=== PATIENT | male | born 1995 | race Caucasian/White ===

== ENCOUNTER 2020-03-03 08:10 | Day surgery (SDC) | payer OTHER ==
[~2020-03-03] VITALS: Ht 165.1 cm; Wt 81.4 kg
[2020-03-03] VITALS (7 sets, daily range): BP systolic 126–141; BP diastolic 57–90
[2020-03-03] MEDS ORDERED: NS 1,000 ML IV ONE (09:00)
[2020-03-03] MEDS ORDERED: ONDANSETRON 4MG/2ML VIAL IV ONE (09:00)
[2020-03-03] MEDS ORDERED: KETOROLAC 30 MG/ML 1ML VIAL IV ONE (09:00)
[2020-03-03 09:08] LABS: BASO % 0.2 % (0.0-1.0); EOS % 0.1 % (0.0-3.0); HEMATOCRIT 44.7 % (42.0-52.0); HEMOGLOBIN 15.3 g/dl (13.5-17.5); LYMPH # 1.3 10^3/uL (1.5-5.0); LYMPH % 6.8 % (24.0-44.0); MEAN CORPUSCULAR HEMOGLOBIN 29.8 pg (27.0-33.0); MEAN CORPUSCULAR HGB CONC 34.2 g/dl (32.0-36.5); MEAN CORPUSCULAR VOLUME 87.1 fl (80.0-96.0); MONO # 1.3 10^3/uL (0.0-0.8); MONO % 6.3 % (0.0-5.0); NEUTROPHILS % 86.1 % (36.0-66.0); PLATELET COUNT, AUTOMATED 305 10^3/uL (150-450); RED BLOOD COUNT 5.13 10^6/uL (4.30-6.10); WHITE BLOOD COUNT 19.8 10^3/uL (4.0-10.0)
[2020-03-03] MEDS ORDERED: ISOVUE-370 76% 100ML VIAL As Ordered ONE (09:19)
[2020-03-03 09:46] LABS: ALBUMIN 4.4 GM/DL (3.2-5.2); BILIRUBIN,DIRECT 0.1 MG/DL (0.0-0.2); BILIRUBIN,TOTAL 0.5 MG/DL (0.2-1.0); TOTAL PROTEIN 7.5 GM/DL (6.4-8.2)
--- NOTE | 2020-03-03 09:52 | REP ---
INDICATION: diffuse abd pain, n/v COMPARISON: None. TECHNIQUE: CT Scan of the abdomen and pelvis was performed with intravenous administration of 100 cc of Isovue 370, without oral contrast. FINDINGS: Lung bases: There is no evidence of acute infiltrate. There is a small hiatal hernia. Liver: There is diffuse fatty infiltration of the liver. Gallbladder: Unremarkable. Spleen: Normal. Adrenals: Normal. Pancreas: Normal. Kidneys: Normal. Small and large bowel: Unremarkable. Free fluid: There is trace free fluid in the pelvis. Abdominal aorta: No aneurysm or dissection. Adenopathy: None. Appendix: The appendix is distended with fluid, with surrounding streaky inflammatory change in the periappendiceal fat. The findings are consistent with appendicitis.. Osseous structures: Unremarkable. Pelvis: No mass. IMPRESSION: The appendix is distended with fluid, with surrounding streaky inflammatory change in the periappendiceal fat. The findings are consistent with appendicitis.. There is trace free fluid in the pelvis. There is no free air. <Electronically signed by Jabari Wyatt > 03/03/20 0901
[2020-03-03] MEDS ORDERED: PIPERACILLIN/TAZOBACTAM SOD 4.5 GM in D5W MINI-BAG PLUS 50 ML IV ONE (11:15)
[2020-03-03] MEDS ORDERED: LR 1,000 ML IV SCH ×2 (13:08→17:45)
[2020-03-03] MEDS ORDERED: ONDANSETRON 4MG/2ML VIAL IV PRN ×2 (13:15→17:45)
[2020-03-03] MEDS ORDERED: propofoL 200 MG/20 ML VIAL As Ordered ONE (15:04)
[2020-03-03] MEDS ORDERED: ROCURONIUM BROMIDE 50 MG/5 ML VIAL As Ordered ONE (15:04)
[2020-03-03] MEDS ORDERED: LIDOCAINE 2% 100MG/5ML SDV (FOR ANES.) As Ordered ONE (15:04)
[2020-03-03] MEDS ORDERED: fentaNYL 250 MCG/5 ML INJECTION (J3010) As Ordered ONE (15:04)
[2020-03-03] MEDS ORDERED: MIDAZOLAM INJ 2MG/2ML VIAL (J2250 PER 1MG) As Ordered ONE (15:05)
[2020-03-03] MEDS ORDERED: BUPIVACAINE HCL 0.25% 30ML VIAL As Ordered ONE (15:06)
[2020-03-03] MEDS ORDERED: LIDOCAINE 1% SDV 30ML VIAL As Ordered ONE (15:06)
[2020-03-03] MEDS ORDERED: KETOROLAC 60MG 2ML VIAL As Ordered ONE (15:35)
[2020-03-03] MEDS ORDERED: dexameTHASONE 4 MG/ML 1ML VIAL (J1100 PER 1MG) As Ordered ONE (15:35)
[2020-03-03] MEDS ORDERED: METOCLOPRAMIDE INJ 10MG/2ML VIAL (J2765 PER 1) As Ordered ONE (15:35)
[2020-03-03] MEDS ORDERED: ONDANSETRON 4MG/2ML VIAL As Ordered ONE (15:35)
[2020-03-03] MEDS ORDERED: ACETAMINOPHEN 1000MG 100ML IV BTL (OFIRMEV) (J0131 PER 10MG) As Ordered ONE (15:36)
[2020-03-03] MEDS ORDERED: SUGAMMADEX SODIUM 500 MG/5 ML VIAL (BRIDION) As Ordered ONE (15:48)
[2020-03-03] MEDS ORDERED: oxyCODONE 5MG TAB PO PRN (17:45)
[2020-03-03] MEDS ORDERED: METOCLOPRAMIDE INJ 10MG/2ML VIAL (J2765 PER 1) IV PRN (17:45)
[2020-03-03] MEDS ORDERED: MEPERIDINE INJ 25 MG/ML VIAL (J2175) IV PRN (17:45)
[2020-03-03] MEDS ORDERED: fentaNYL 100 MCG/2 ML INJECTION (J3010) IV PRN (17:45)
[2020-03-03] MEDS ORDERED: KETOROLAC 30 MG/ML 1ML VIAL IV PRN (18:15)
[2020-03-03] MEDS ORDERED: PERCOCET 5MG/325MG TAB PO PRN (18:15)
[2020-03-03] MEDS: PIPERACILLIN/TAZOBACTAM SOD 3.375 GM in D5W MINI-BAG PLUS 50 ML IV SCH ×2 (18:35→23:14)
[2020-03-03] MEDS: PERCOCET 5MG/325MG TAB PO PRN ×2 (18:36→23:15)
[2020-03-04 06:00] VITALS: BP 107/67
[2020-03-04] MEDS: PERCOCET 5MG/325MG TAB PO PRN ×2 (06:08→12:54)
[2020-03-04] MEDS: PIPERACILLIN/TAZOBACTAM SOD 3.375 GM in D5W MINI-BAG PLUS 50 ML IV SCH ×2 (06:08→11:18)
[2020-03-04 06:20] LABS: BASO % 0.1 % (0.0-1.0); HEMOGLOBIN 13.7 g/dl (13.5-17.5); LYMPH # 1.1 10^3/uL (1.5-5.0); MEAN CORPUSCULAR HEMOGLOBIN 29.4 pg (27.0-33.0); MEAN CORPUSCULAR HGB CONC 33.4 g/dl (32.0-36.5); MONO # 0.9 10^3/uL (0.0-0.8); MONO % 7.8 % (0.0-5.0); NEUTROPHILS # 9.6 10^3/uL (1.5-8.5); NEUTROPHILS % 82.5 % (36.0-66.0); PLATELET COUNT, AUTOMATED 251 10^3/uL (150-450); RED BLOOD COUNT 4.66 10^6/uL (4.30-6.10); WHITE BLOOD COUNT 11.7 10^3/uL (4.0-10.0)
[2020-03-04 06:40] LABS: BLOOD UREA NITROGEN 9 MG/DL (7-18); CALCIUM LEVEL 8.6 MG/DL (8.5-10.1); CARBON DIOXIDE LEVEL 30 MEQ/L (21-32); CHLORIDE LEVEL 106 MEQ/L (98-107); CREATININE FOR GFR 1.01 MG/DL (0.70-1.30); GLOMERULAR FILTRATION RATE > 60.0 (>60); GLUCOSE, FASTING 116 MG/DL (70-100); POTASSIUM SERUM 4.2 MEQ/L (3.5-5.1); SODIUM LEVEL 140 MEQ/L (136-145)
[2020-03-04 10:00] VITALS: BP 125/63
[2020-03-04] MEDS ORDERED: AUGM500T34 PO (11:07)
--- NOTE | 2020-03-04 12:08 | ROOPDOC ---
[facility] Report Of Operation Report of Operation DATE OF PROCEDURE: 03/03/20 PREPROCEDURE DIAGNOSES: acute appendicitis. POSTPROCEDURE DIAGNOSES: acute appendicitis. PROCEDURE: Laparoscopic Appendectomy. SURGEON: Rishabh Sagastume MD [employer]: ANESTHESIA: General Anesthesia. ESTIMATED BLOOD LOSS: Approximately 10 mL. COMPLICATIONS: none. REMARKS: Healthy 25 M, with one day history of lower abdominal pain, nausea found to have acute appendicitis. PROCEDURE NOTE: distended midportion of appendix, thickened wall, no perforation. DESCRIPTION OF PROCEDURE: Patient has been given a dose of Zosyn perioperatively.Patient was brought to the operating room, placed supine on the table. Sequential compression device placed for DVT prophylaxis. General endotracheal anesthesia started. The abdomen prepped and draped in usual sterile fashion. After a surgical timeout, we began our surgery Entry into the abdomen done through an incision at the top of the umbilicus. Veress needle inserted on a controlled fashion. Intra-abdominal placement confirmed with saline drop technique. CO2 insufflation started to a pressure of 15 mmHg. Using the same incision a 5 mm port was placed under direct vision of laparoscope. Insertion site was inspected for injury and none was found. He was placed on a Trendelenburg position the right side tilted to about 30 to allow for better visualization of the appendix. 2 5 mm working ports were placed at the suprapubic area and left lower quadrant area under direct vision, an 8 mm port exchanged at the umbilical camera port site. Operative findings: No free ascites noted. The appendix takes a retrocecal course and adhered to the retroperitoneum, inserts lateral to the insertion of the terminal ileum and close to it. The midportion of the appendix is distended. The stone are thickened but not preforated. The appendix was grasped to pull the base of the appendix into view. The mesoappendix was divided using Harmonic scalpel down to the base. The lateral attachments of the appendix to the retroperitoneum dissected and divided until the full course of the appendix to its cecal insertion freed up. Two PDS Endoloops were placed to ligate the appendix at its base then divided with a Harmonic Scalpel the stump cauterized. Stump appears healthy. Appendix was then delivered into an Endo Catch bag through the 8 mm umbilical port site. . After re-insufflation the surgical site was inspected for hemostasis. Surrounding areas of the abdomen and inspected for fluid collections or signs of injury. The abdomen was deflated. All ports removed. The umbilical fascial defect repaired with 0 Vicryl in a mattress fashion. All skin incisions closed with 4-0 Monocryl in a subcuticular fashion. Steri-Strips and gauze dressing used for wound coverage. Patient was promptly awake and extubated and brought to recovery room stable. All counts of sponges and instruments verified to be correct. RISHABH SAGASTUME MD Mar 04, 2020 12:08
--- NOTE | 2020-03-08 11:54 | IPNPDOC ---
Text Note Date of Service The patient was seen on 03/04/20. NOTE Patient looks much more comfortable than on presentation. He reports no fever postop. He is tolerating diet. Postoperative vital signs reviewed, he is been afebrile. On examination He looks comfortable Abdomen is soft, nondistended, slightly rounded. He has 3 port sites, postoperative dressings are clean dry and intact. Minimal leftover residual tenderness over the right lower quadrant area, minimal port site tenderness. No rebound or guarding Impression and plan Postop day 1 laparoscopic appendectomy for acute appendicitis, nonperforated, non-complicated Patient is stable to go home. No further antibiotics are required. Follow-up with me in 2 weeks' time. VS,Fishbone, I+O VS, Fishbone, I+O Vital Signs Date Time Temp Pulse Resp B/P (MAP) Pulse Ox O2 Delivery O2 Flow Rate FiO2 03/04/20 13:24 16 Room Air 03/04/20 10:00 99.3 63 125/63 (83) 98 DAMI MUÑOZ MD Mar 08, 2020 11:54
== END 2020-03-04 13:20 | disposition home or self-care (01) ==
LOC: M ED 08:10 → EDBD 08:10 → M SDC 08:11 → M MSPAV 17:47 → M SDC 03-04 13:20
PROVIDERS: ATTEND Surgery
DX: K35.890 Other acute appendicitis without perforation or gangrene (principal); F17.290 Nicotine dependence, other tobacco product, uncomplicated
CPT/HCPCS: 36415; 44970; 74177; 80047; 80048; 80076; 81001; 83605; 83690; 85025; 87040; 87077; 87186; 88304; 96361; 96365; 96366; 96375; 99284; J0131; J1100; J1885; J2250; J2405; J2543; J2765; J3010; Q9967; U0002

== ENCOUNTER 2021-03-21 09:35 | Emergency (ER) | payer OTHER ==
[~2021-03-21] VITALS: Ht 165.1 cm; Wt 84.1 kg
[~2021-03-21 09:35] MED LIST: AUGM500T34 PO
--- OUTSIDE RECORDS SUMMARY | 2021-03-21 09:44 | CCD ---
Author Author [facility] Organization [facility] Address Unknown Phone Unavailable Care Team Providers Care Glove Parts Cutter Name Role Phone Solo Toney MD Unavailable Unavailable KavehronSolo MD Unavailable Unavailable KavehronSolo MD Unavailable Unavailable KavehronSolo MD Unavailable Unavailable KavehronSolo MD Unavailable Unavailable DeepakedronSolo MD Unavailable Unavailable BiedronSolo MD Unavailable Unavailable Biedron, Solo Reynolds MD Unavailable Unavailable Biedron, Solo Reynolds MD Unavailable Unavailable [facility] Unavailable Unavailable Re-disclosure Warning The records that you are about to access may contain information from federally-assisted alcohol or drug abuse programs. If such information is present, then the following federally mandated warning applies: This information has been disclosed to you from records protected by federal confidentiality rules (42 CFR part 2). The federal rules prohibit you from making any further disclosure of this information unless further disclosure is expressly permitted by the written consent of the person to whom it pertains or as otherwise permitted by 42 CFR part 2. A general authorization for the release of medical or other information is NOT sufficient for this purpose. The Federal rules restrict any use of the information to criminally investigate or prosecute any alcohol or drug abuse patient.The records that you are about to access may contain highly sensitive health information, the redisclosure of which is protected by Article 27-F of the [facility] Public Health law. If you continue you may have access to information: Regarding HIV / AIDS; Provided by facilities licensed or operated by the [facility] Office of Mental Health; or Provided by the [facility] Office for People With Developmental Disabilities. If such information is present, then the following [facility] mandated warning applies: This information has been disclosed to you from confidential records which are protected by state law. State law prohibits you from making any further disclosure of this information without the specific written consent of the person to whom it pertains, or as otherwise permitted by law. Any unauthorized further disclosure in violation of state law may result in a fine or care home sentence or both. A general authorization for the release of medical or other information is NOT sufficient authorization for further disc losure. Allergies and Adverse Reactions Type Description Substance Reaction Status Data Source(s ) No Known Drug Allergies No Known Drug Allergies [facility] No Known Food Allergies No Known Food Allergies [facility] Encounters Encounter Providers Location Date Indications Data Source(s ) Outpatient Attender: Rodolfo Toney MDConsultant: [facility] 12/03/2020 06:15:00 AM EDT - 12/03/2020 11:25:[address] [facility] Patient discharged. Outpatient Attender: Rodolfo Toney MDConsultant: [facility] 11/29/2020 08:02:00 AM EDT - 11/30/2020 08:55:[address] [facility] Patient discharged. Medications Medication Brand Name Start Date Product Form Dose Route Admi nistrative Instructions Pharmacy Instructions Status Indications Reaction Description Data Source(s) Acetaminophen 325 MG / Oxycodone Hydrochloride 5 MG Or al Tablet [Percocet] Percocet 03/04/2020 12:00:00 AM EST ORAL active [facility] ([facility], ) Insurance Providers Payer name Policy type / Coverage type Policy ID Covered constitution party ID Covered constitution party's relationship to herring Policy Herring Plan Information [facility] HUMANA - O/P [id number] 18 [id number] [facility] O [id number] S [id number] [facility] ACTIVE DUTY [id number] SP [id number] Problems, Conditions, and Diagnoses Code Display Name Description Problem Type Effective Dates Data Source(s) J39952 Pain in right shoulder Pain in right shoulder Diagnosi s 12/03/2020 06:15:[address] [facility] M7521 Bicipital tendinitis, right shoulder Bicipital t endinitis, right shoulder Diagnosis 12/03/2020 06:15:[address] [facility] M7551 Bursitis of right shoulder Bursitis of right shoulder Diagnosis 12/03/2020 06:15:[address] [facility] M7541 Impingement syndrome of right shoulder I mpingement syndrome of right shoulder Diagnosis 12/03/2020 06:15:[address] [facility] Q06379 Encounter for other preprocedural examin ation Encounter for other preprocedural examination Diagnosis 11/30/2020 08:00:00 AM T [facility] Surgeries/Procedures No Information Results ID Date Data Source [id number] 12/03/2020 10:39:00 [place] [address] OPERATIVE SUMMARYNAME: MICHELE Banda DATE OF : 1995ATTENDING PHYS: Rodolfo Toney MD DATE: 12/03/20 MR#: [id number] PROCEDURE: 12/03/2020URGEON: Rodolfo Toney MD.PRODUCT REPRESENTATIVE: FADY Baker.PREOPERATIVE DIAGNOSIS: 1. Right shoulder subacromial impingement. 2. Subacromial bursitis. 3. Biceps tendinitis.POSTOPERATIVE DIAGNOSIS: 1. Right shoulder subacromial impingement. 2. Subacromial bursitis. 3. Biceps tendinitis.OPERATION: 1. Right shoulder open subpectoral biceps tenodesis. 2. Right subacromial decompression and bursectomy. 3. Right shoulder diagnostic arthroscopy.FINDINGS:Patient had right shoulder subacromial impingement, biceps tendinitis, as well as subacromialb ursitis.INDICATIONS:This is a 25-year-old male with right shoulder pain with subacromial impingement, bicepstendinitis, and subacromial bursitis. The patient presented with right shoulder pain forapproximately four months. Patient had completed 12 weeks of physical therapy, however he didnot have any significant improvement in symptoms after physical therapy, activity modification,and NSAID use. He attempted a subacromial corticosteroid injection, which relieved his pain forapproximately two weeks, but then symptoms returned. Patient had been experiencing limitationwith push-ups, pull-ups, and upper body lifting with overhead activity. He was indicated for theaforementioned procedure.ANESTHESIA: GETA.TOURNIQUET TIME: None used. [address] [place] [address] OPERATIVE SUMMARYNAME: MICHELE Banda DATE OF : 1995ATTENDING PHYS: Rodolfo Toney MD DATE: 12/03/20 MR#: [id number] BLOOD LOSS: 20 cc.IV ANTIBIOTICS: Please see anesthesia report.IV FLUIDS: Please see anesthesia report.IMPLANTS: Arthrex.CUL TURES: None.SPECIMENS: None.PROCEDURE IN DETAIL:The patient was met in the pre- operative holding area, where the patient's operative extremity wassigned, the patient's consent was confirmed to be correct, and the patient's identity was confirmedto be correct. The patient was then transported to the operating theater, where he was placed in thesupine position and beach chair position. Safety straps secured the patient to the bed, all bonyprominences were well- padded, and the bilateral lower extremities had SCDs placed. A time-outwas called to confirm correct patient, correct operative extremity, and correct consent. All staffwere in agreement. The patient was then draped in the usual sterile fashion. We began theprocedure by establishing our posterior and anterior portals to the right shoulder. We thenperformed a diagnostic arthroscopy. The patient's long head of the biceps had significant erythemaand adhesions. The patient's subscapularis was intact without any pathology. His MGHL was intactwithout any pathology. His supraspinatus and infraspinatus had good intraarticular attachmentwithout any tears or degeneration. Patient's inferior pouch is intact. There were no HAGL lesions ofthe inferior capsule. His anterior, inferior, and posterior labrums were intact without any pathologyand did not appear to have any SLAP tears with diagnostic arthroscopy. He had no signs ofchondromalacia in the glenoid or humeral head. After the diagnostic arthroscopy, we thenperformed a biceps tenotomy, which would later be converted to an open subpectoral bicepstenodesis. After performing these procedures, we t urned our attention to the subacromial space. Iremoved the arthroscope to the subacromial space, where I then performed a thorough subacromialdecompression and bursectomy. I excised the inflamed subacromial bursa using the shaver andelectrocautery. I then moved the arthroscope into the lateral portal, which was established in orderto end the subacromial decompression, and obtained a 180 view of the rotator cuff to include thesupra- and infraspinatus, which had no bursal tears. At this point in time, we removed allarthroscopic instrumentation from the subacromial space and turned our attention to the opensubpectoral biceps tenodesis portion of the case. [address] [place] [address] OPERATIVE SUMMARYNAME: MICHELE Banda DATE OF : 1995ATTENDING PHYS: Rodolfo Toney MD DATE: 12/03/20 MR#: [id number] patient's arm was abducted to 90 degrees and externally rotated to approximately 70 degrees,and then marked out my skin incisions, which would be bisecting the inferior border of thepectoralis. The skin incision was approximately 1" in length and just adjacent to the axillary fold,but longitudinal in nature. I incised the skin sharply using meticulous hemostasis to make my wayto the pectoralis fascia, which was then incised. I was able to palpate the long head of the bicepswithin the bicipital groove. I protected the musculocutaneous nerve on the underbelly of the shorthead of the b iceps. We then introduced a Ariana retractor along the lateral aspect of the patient'shumerus and identified the long head of the biceps within the bicipital groove, which was thenextracted. I then prepared the bicipital groove for implant placement. I whipstitched the long headof the biceps and cleaned it of adhesions. We then drilled a unicortical transosseous hole within thesuperior level of the bicipital groove at the level of the pallium. We then inserted our unicorticalbutton into position and tightened the long head of the biceps within the groove. At this point intime, we then placed one loose end of the suture through the biceps tendon and tied this intoposition and secured it to the unicortical button anchor using surgical knots. At this point in time,made sure the tension was correct through flexion and extension of the patient's right elbow, it was.We then copiously irrigated all surgical sites. We closed the dermal layer of the biceps tenodesissurgical incision using a 2-0 PDS and the skin using 4-0 Monocryl in a running fashion. We closedthe anterior, posterior, and lateral portals using 4-0 Monocryl suture. We then placed Steri-Stripsover all surgical incisions followed by Xeroform, 4 x 4 gauze, ABD pads, and Medipore tape. Thepatient's right upper extremity was placed into a sling. The patient was then extubated withoutcomplication, and transported to the Post-Anesthesia Care Unit.The patient will follow the open subpectoral biceps tenodesis rehabilitative protocol. He will followup in two weeks for post-operative wound check. He was given his post-operative medication at hispre-operation appointment. Patient will be educated of the aforementioned findings in the Post-Anesthesia Care Unit.DD: Rodolfo Toney MD 12/03/20 09:33DT: ALEX 12/03/20 10:12DS: Rodolfo Toney MD 12/08/20 11:43 [address] [place] [address] OPERATIVE SUMMARYNAME: MICHELE Banda DATE OF : 1995ATTENDING PHYS: Rodolfo Toney MD DATE: 12/03/20 MR#: [id number] Name Value Range Interpretation Code Description Data Mckayla rce(s) Supporting Document(s) ID Date Data Source [id number] 11/29/2020 09:41:00 AM EDT [facility] Name Value Range Interpretation Code Description Data Mckayla rce(s) Supporting Document(s) SARS coronavirus 2 RNA Not Detected [facility] [place] This lab was ordered by [facility] and reported by [facility]. ID Date Data Source [id number] 06/23/2020 10:06:00 AM EST [facility] Name Value Range Interpretation Code Description Data Mckayla rce(s) Supporting Document(s) SARS coronavirus 2 RNA Not Detected [facility] [place] This lab was ordered by [facility] and reported by [facility]. ID Date Data Source [id number] 03/04/2020 06:04:00 AM EST [facility] ([facility], ) Name Value Range Interpretation Code Description Data Mckayla rce(s) Supporting Document(s) Glucose, Fasting 116 mg/dL 70-100 Above high normal [facility] Blood Urea Nitrogen 9 mg/dL 7-18 Normal (applies to non-nume taylor results) [facility] ([facility]) Sodium Level 140 meq/L 136-145 Normal (applies to non-numeric res ults) [facility] ([facility]) Glomerular Filtration Rate Laboratory test result Normal (applies to non- numeric results) [facility]) <content>Units are mL/min/1.73 m2</content>
<content></content>
<content>Chronic Kidney Disease Staging per NKF:</content>
<content></content>
<content>Stage I & II GFR >=60 Normal to Mildly Decreased</content>
<content>Stage III GFR 30- 59 Moderately Decreased</content>
<content>Stage IV GFR 15-29 Severely Decreased</content>
<content>Stage V GFR <15 Very Little GFR Left</content>
<content>ESRD GFR <15 on EEG TECHNOLOGIST</content>
<content></content> Creatinine For GFR 1.01 mg/dL 0.70-1.30 Normal (applies to non -numeric results) [facility] ([facility]) Carbon Dioxide Level 30 meq/L 21-32 Normal (applies to non-num macy results) [facility] ([facility]) Chloride Level 106 meq/L 98-107 Normal (applies to non-numeric r esults) [facility]) Potassium Serum 4.2 meq/L 3.5-5.1 Normal (applies to non-numeric results) [facility]) Anion Gap 4 meq/L 8-16 Below low normal [facility] ( [facility]) Calcium Level 8.6 mg/dL 8.5-10.1 Normal (applies to non-numeric re sults) [facility]) ID Date Data Source [id number] 03/04/2020 06:04:00 AM EST [facility] Name Value Range Interpretation Code Description Data Mckayla rce(s) Supporting Document(s) White Blood Count 11.7 10 4.0-10.0 Above high normal [facility] ([facility]) Hemoglobin 13.7 g/dL 13.5-17.5 Normal (applies to non-numeric resul ts) [facility] ([facility]) Red Blood Count 4.66 10 4.30-6.10 Normal (applies to non-numeric results) [facility] ([facility]) Mean Corpuscular Hemoglobin 29.4 pg 27.0-33.0 Norm al (applies to non-numeric results) [facility] ([facility]) Mean Corpuscular Volume 88.0 fl 80.0-96.0 Normal ( applies to non-numeric results) [facility] ([facility]) Hematocrit 41.0 % 42.0-52.0 Below low normal [facility] Platelet Count, Automated 251 10 150-450 Normal (applies to non-numeric results) [facility] ([facility]) Red Cell Distribution Width 12.4 % 11.5-14.5 Norm al (applies to non-numeric results) [facility] ([facility]) Mean Corpuscular HGB Conc 33.4 g/dL 32.0-36.5 Normal (applies to non-numeric results) [facility] ([facility]) [place] % 7.8 % 0.0-5.0 Above high normal [facility] ([facility]) Lymph % 9.0 % 24.0-44.0 Below low normal [facility] ( [facility]) Neutrophils % 82.5 % 36.0-66.0 Above high normal [facility] ([facility]) Immature Granulocyte % 0.6 % 0-3.0 Normal (applies to non-n umeric results) [facility]) Eos % 0.0 % 0.0-3.0 Normal (applies to non-numeric resul ts) [facility]) Baso % 0.1 % 0.0-1.0 Normal (applies to non-numeric resul ts) [facility] ([facility]) Nucleated Red Blood Cell % 0.0 % 0-0 Normal (applies to n on-numeric results) [facility] ([facility]) Lymph # 1.1 10 1.5-5.0 Below low normal [facility] ( [facility]) Neutrophils # 9.6 10 1.5-8.5 Above high normal [facility] ([facility]) [place] # 0.9 10 0.0-0.8 Above high normal [facility] ([facility]) Baso # 0.0 10 0.0-0.2 Normal (applies to non-numeric resul ts) [facility] ([facility]) Eos # 0.0 10 0.0-0.5 Normal (applies to non-numeric resul ts) [facility] ([facility]) ID Date Data Source [id number] 03/03/2020 04:07:00 PM EST [facility] ([facility]) Name Value Range Interpretation Code Description Data Mckayla rce(s) Supporting Document(s) Surgical pathology study Laboratory test result [facility] ([facility]) FINAL DIAGNOSIS Appendix, appendectomy: Acute appendicitis with periappendicitis. 03/05/2020825 CLINICAL DIAGNOSIS Acute appendicitis 03/04/2020 - 1401 GROSS DIAGNOSIS Received in formalin labeled "appendix" and consists of an appendectomy specimen 3.5 cm in length and 0.8 cm in diameter. No Polypoid or mass lesion is identified. Fruit Loader section is submitted in one. -OA 03/05/2020825 Signed ANAM MONTES DE OCA MD 03/05/2020 1057 ID Date Data Source [id number] 03/03/2020 11:29:00 AM EST [facility] ([facility]) Name Value Range Interpretation Code Description Data Mckayla rce(s) Supporting Document(s) Blood Culture Laboratory test result [facility] ([facility]) No growth after 72 hours . All specimens observed for 5 days. Results final at that time. No growth after 48 hours . All specimens observed for 5 days. Results final at that time. No growth after 24 hours . All specimens observed for 5 days. Results final at that time. NO GROWTH AFTER 5 DAYS ID Date Data Source [id number] 03/03/2020 11:28:00 AM EST [facility] ([facility], ) Name Value Range Interpretation Code Description Data Mckayla rce(s) Supporting Document(s) Blood Culture Laboratory test result Normal (applies t o non-numeric results) [facility] <content>GRAM POSITIVE COCCI IN CLUSTERS GRAM POSITIVE RODS</content>
<content>DATE POSITIVE DETECTED 03/04/20</content>
<content>GRAM STAIN CALLED BY ANALILIA</content>
<content>GRAM STAIN CALLED TO CHUCK PROCTOR</content>
<content>DATE GRAM STAIN CALLED 03/04/20</content>
<content>TIME GRAM STAIN CALLED 0939</content>
<content></content>
<content>ORGANISM 1: STAPHYLOCOCCUS HOMINIS SSP JEFFY</content>
<content></content>
<content></content>
<content>ORGAN ISM 2: CORYNEBACTERIUM SPECIES</content>
<content></content>
<content> Many species of Coryneform bacteria are part of the</content>
<content>normal missy of the skin and mucous membranes in</content>
<content>humans. Repeated isolation or a coryneform bacterium< /content>
<content>growing in pure culture may require consultation with</content>
<content>an infectious disease specialist. There are currently</content>
<content>no susceptibility standards for these organisms.</content>
<content></content>
<content></content>
<content>ORGANISM 1: STAPHYLOCOCCUS HOMINIS SSP JEFFY</content>
<content>ORGANISM 2: CORYNEBACTERIUM SPECIES</content>
<content></content>
<content>STAPHYLOCOCCUS HOMINIS SSP JEFFY: REACTION</content>
<content>ICR (INDUCIBLE CC RESISTANCE) IV ICR TEST RESULT</content>
<content>TETRACYCLINE PO 250 mg qid <=1 S</content>
<content>PENICILLIN G IV 1 mu q6h <=0.03 R</content>
<content>PENICILLIN G PO 250mg q6h fasting <=0.03 R</content>
<content>TRIMETHOPRIM/SULFAMETHOXAZOLE IV 160mg TMP & 800mg SMXq6h <=10 S</content>
<content>TRIMETHOPRIM/SULFAMETHOXAZOLE PO Bactrim DS Bid <=10 S</content>
<content>ERYTHROMYCIN IV 500mg q6h >=8 R</content>
<content> ERYTHROMYCIN PO 500mg q6h >=8 R</content>
<content>GENTAMICIN IV 80mg q8h <=0.5 S</content>
<content>CLINDAMYCIN IV 600mg q6h >=4 R</content>
<content>CLINDAMYCIN PO 150mg q6h >=4 R</content>
<content>OXACILLIN IV 500mg q6h <=0.25 S</content>
<content>VANCOMYCIN IV 500mg q8h 1 S</content>
<content> LINEZOLID (ZYVOX) IV 600MG Q12HR 4 S</content>
<content>LINEZOLID (ZYVOX) PO 600MG Q12HR 4 S</content>
<content>An isolate with a (+) POSITIVE ICR test is considered</content>
<content>CLINDAMYCIN RESISTANT; however, clindamycin may still</content>
<content>be effective in some patients.</content>
< content>An isolate with a (-) NEGATIVE ICR test is considered</content>
<content>CLIDAMYCIN SENSITIVE.</content>
<content>Oxacillin result predicts susceptibility to all penicillinase-stable</content>
<content>penicillins (Nafcillin, Dicloxacilin), Cephalosporins, Carbapenems,</content>
<content>Amoxicillin/Clavulanate & Ampicillin/Sulbactam per [facility] standards.</content>
<content></content> Procedure Social History No Information Vital Signs ID Date Data Source UNK Name Value Range Interpretation Code Description Data Source(s) Systolic blood pressure 120 mm[Hg] 120 mm[Hg] [facility] Diastolic blood pressure 62 mm[Hg] 62 mm[Hg] [facility] ([facility]) Body height 65 [in_i] 65 [in_i] [facility] ([facility]) 5'5" Body weight 180.38 [lb_av] 180.38 [lb_av] [facility] Body mass index (BMI) [Ratio] 30.0 kg/m2 30.0 k g/m2 [facility] ([facility]) [place] body weight 136 [lb_av] 136 [lb_av] [facility] Body weight 81.818 kg 81.818 kg [facility] ([facility]) ID Date Data Source [id number] 12/08/2020 03:56:[address] [facility] Name Value Range Interpretation Code Description Data Source(s) WEIGHT RECORDED 180.00 pounds 180.00 pounds [facility] Height [address] [facility]
[2021-03-21 12:27] LABS: BASO % 0.5 % (0.0-1.0); EOS # 0.3 10^3/uL (0.0-0.5); EOS % 3.1 % (0.0-3.0); HEMATOCRIT 49.2 % (42.0-52.0); LYMPH # 2.6 10^3/uL (1.5-5.0); LYMPH % 31.4 % (24.0-44.0); MEAN CORPUSCULAR HGB CONC 34.6 g/dl (32.0-36.5); MEAN CORPUSCULAR VOLUME 86.9 fl (80.0-96.0); MONO # 0.7 10^3/uL (0.0-0.8); MONO % 8.2 % (2.0-8.0); NEUTROPHILS # 4.7 10^3/uL (1.5-8.5); NEUTROPHILS % 56.3 % (36.0-66.0); PLATELET COUNT, AUTOMATED 303 10^3/uL (150-450); RED BLOOD COUNT 5.66 10^6/uL (4.30-6.10); WHITE BLOOD COUNT 8.4 10^3/uL (4.0-10.0)
[2021-03-21 12:49] LABS: BLOOD UREA NITROGEN 13 MG/DL (7-18); CALCIUM LEVEL 10.2 MG/DL (8.5-10.1); CARBON DIOXIDE LEVEL 30 MEQ/L (21-32); CHLORIDE LEVEL 103 MEQ/L (98-107); CREATININE FOR GFR 1.04 MG/DL (0.70-1.30); GLOMERULAR FILTRATION RATE > 60.0 (>60); GLUCOSE, FASTING 91 MG/DL (70-100); POTASSIUM SERUM 4.5 MEQ/L (3.5-5.1); SODIUM LEVEL 138 MEQ/L (136-145)
[2021-03-21] MEDS ORDERED: NS 1,000 ML IV ONE (14:30)
[2021-03-21] MEDS ORDERED: KETOROLAC 30 MG/ML 1ML VIAL IV ONE (14:30)
[2021-03-21] MEDS ORDERED: ONDANSETRON 4MG/2ML VIAL IV ONE (14:30)
--- NOTE | 2021-03-21 14:47 | REP ---
INDICATION: dizzy/headache. COMPARISON: None. TECHNIQUE: 5 mm contiguous transaxial sections were obtained from the skull base to the cerebral convexities. FINDINGS: The ventricles and sulci are consistent with the patient's age. There are no extra-axial fluid collections. There is no mass effect. The deep cerebral white matter is consistent with the patient's age. The orbital and petrous structures, cerebellopontine angles, and posterior fossa are unremarkable. The sella turcica, cavernous, and paracavernous structures are essentially unremarkable. The visualized portions of the paranasal sinuses and mastoid air cells are clear. Images of the skull base show no gross abnormality. IMPRESSION: Unremarkable CT examination of the brain. <Electronically signed by Vladimir [place] > 03/21/21 5255
--- OUTSIDE RECORDS SUMMARY | 2021-03-21 15:02 | CCD ---
Author Author [facility] Organization [facility] Address Unknown Phone Unavailable Care Team Providers Care Band Attacher Name Role Phone Solo Toney MD Unavailable [...] is protected by Article 27-F of the [facility] Public Health law. If you continue you may have access to information: Regarding HIV / AIDS; Provided by facilities licensed or operated by the [facility] Office of Mental Health; or Provided by the [facility] Office for People With Developmental Disabilities. If such information is present, then the following [facility] mandated warning applies: This information has been [...] law may result in a fine or [place] [facility] [place] sentence or both. A general authorization for the release of medical or other information is NOT sufficient authorization for further disc losure. Allergies and Adverse Reactions Type Description Substance Reaction Status Data Source(s ) No Known Drug Allergies No Known Drug Allergies [facility] No Known Food Allergies No Known Food Allergies [facility] Encounters Encounter Providers Location Date Indications Data Source(s ) Outpatient Attender: Rodolfo Toney MDConsultant: [facility] 12/03/2020 06:15:00 AM EDT - 12/03/2020 11:25:00 AM EDT [facility] Patient discharged. Outpatient Attender: Rodolfo Toney MDConsultant: [facility] 11/29/2020 08:02:00 AM EDT - 11/30/2020 08:55:00 AM EDT [facility] Patient discharged. Medications Medication Brand Name Start Date Product Form Dose Route Admi nistrative Instructions Pharmacy Instructions Status Indications Reaction Description Data Source(s) Acetaminophen 325 MG / Oxycodone Hydrochloride 5 MG Or al Tablet [Percocet] Percocet 03/04/2020 12:00:00 AM EST ORAL active [facility] ([facility], ) Insurance Providers Payer name Policy type / Coverage type Policy ID Covered democrat ID Covered democrat's relationship to herring Policy Herring Plan Information [facility] HUMANA - O/P [id number] 18 [id number] [facility] O [id number] S [id number] [facility] ACTIVE DUTY [id number] SP [id number] Problems, Conditions, and Diagnoses Code Display Name Description Problem Type Effective Dates Data Source(s) B82729 Pain in right shoulder Pain in right shoulder Diagnosi s 12/03/2020 06:15:00 AM EDT [facility] M7521 Bicipital tendinitis, right shoulder Bicipital t endinitis, right shoulder Diagnosis 12/03/2020 06:15:00 AM EDT [facility] M7551 Bursitis of right shoulder Bursitis of right shoulder Diagnosis 12/03/2020 06:15:00 AM EDT [facility] M7541 Impingement syndrome of right shoulder I mpingement syndrome of right shoulder Diagnosis 12/03/2020 06:15:00 AM T [facility] M85216 Encounter for other preprocedural examin ation Encounter for other preprocedural examination Diagnosis 11/30/2020 08:00:00 AM T [facility] Surgeries/Procedures No Information Results ID Date Data Source [id number] 12/03/2020 10:39:00 [place] [address] OPERATIVE SUMMARYNAME: MICHELE Banda DATE OF : 1995ATTENDING PHYS: Rodolfo Toney MD DATE: 12/03/20 MR#: [id number] PROCEDURE: 12/03/2020URGEON: Rodolfo Toney MD.LEGAL RECOVERY SPECIALIST: FADY Baker.PREOPERATIVE DIAGNOSIS: 1. Right shoulder subacromial [...] theaforementioned procedure.ANESTHESIA: GETA.TOURNIQUET TIME: None used. [address] [place] [address] OPERATIVE SUMMARYNAME: MICHELE Banda DATE OF : 1995ATTENDING PHYS: Rodolfo Toney MD DATE: 12/03/20 MR#: [id number] BLOOD LOSS: 20 cc.IV ANTIBIOTICS: Please see [...] biceps tenodesis portion of the case. [address] [place] [address] OPERATIVE SUMMARYNAME: MICHELE Banda DATE OF : 1995ATTENDING PHYS: Rodolfo Toney MD DATE: 12/03/20 MR#: [id number] patient's arm was abducted to 90 degrees [...] 10:12DS: Rodolfo Toney MD 12/08/20 11:43 [address] [place] [address] OPERATIVE SUMMARYNAME: MICHELE Banda DATE OF : 1995ATTENDING PHYS: Rodolfo Toney MD DATE: 12/03/20 MR#: [id number] Name Value Range Interpretation Code Description Data Mckayla rce(s) Supporting Document(s) ID Date Data Source [id number] 11/29/2020 09:41:00 AM EDT [facility] Name Value Range Interpretation Code Description Data Mckayla rce(s) Supporting Document(s) SARS coronavirus 2 RNA Not Detected [facility] [place] This lab was ordered by [facility] and reported by [facility]. ID Date Data Source [id number] 06/23/2020 10:06:00 AM EST [facility] Name Value Range Interpretation Code Description Data Mckayla rce(s) Supporting Document(s) SARS coronavirus 2 RNA Not Detected [facility] [place] This lab was ordered by [facility] and reported by [facility]. ID Date Data Source [id number] 03/04/2020 06:04:00 AM EST [facility] ([facility], ) Name Value Range Interpretation Code Description Data Mckayla rce(s) Supporting Document(s) Glucose, Fasting 116 mg/dL 70-100 Above high normal [facility] Blood Urea Nitrogen 9 mg/dL 7-18 Normal (applies to non-nume taylor results) [facility] ([facility]) Sodium Level 140 meq/L 136-145 Normal (applies to non-numeric res ults) [facility] ([facility]) Glomerular Filtration Rate Laboratory test result Normal (applies to non- numeric results) [facility]) <content>Units are mL/min/1.73 m2</content>
<content></content>
<content>Chronic Kidney Disease Staging per NKF:</content>
<content></content>
<content>Stage I & II GFR >=60 Normal to Mildly Decreased</content>
<content>Stage III GFR 30- 59 Moderately Decreased</content>
<content>Stage IV GFR 15-29 Severely Decreased</content>
<content>Stage V GFR <15 Very Little GFR Left</content>
<content>ESRD GFR <15 on MEDICAL BILLING AND CODING SPECIALIST</content>
<content></content> Creatinine For GFR 1.01 mg/dL 0.70-1.30 Normal (applies to non -numeric results) [facility] ([facility]) Carbon Dioxide Level 30 meq/L 21-32 Normal (applies to non-num macy results) [facility] ([facility]) Chloride Level 106 meq/L 98-107 Normal (applies to non-numeric r esults) [facility]) Potassium Serum 4.2 meq/L 3.5-5.1 Normal (applies to non-numeric results) [facility]) Anion Gap 4 meq/L 8-16 Below low normal [facility] ( [facility]) Calcium Level 8.6 mg/dL 8.5-10.1 Normal (applies to non-numeric re sults) [facility]) ID Date Data Source [id number] 03/04/2020 06:04:00 AM EST [facility] Name Value Range Interpretation Code Description Data Mckayla rce(s) Supporting Document(s) White Blood Count 11.7 10 4.0-10.0 Above high normal [facility] ([facility]) Hemoglobin 13.7 g/dL 13.5-17.5 Normal (applies to non-numeric resul ts) [facility] ([facility]) Red Blood Count 4.66 10 4.30-6.10 Normal (applies to non-numeric results) [facility] ([facility]) Mean Corpuscular Hemoglobin 29.4 pg 27.0-33.0 Norm al (applies to non-numeric results) [facility] ([facility]) Mean Corpuscular Volume 88.0 fl 80.0-96.0 Normal ( applies to non-numeric results) [facility] ([facility]) Hematocrit 41.0 % 42.0-52.0 Below low normal [facility] Platelet Count, Automated 251 10 150-450 Normal (applies to non-numeric results) [facility] ([facility]) Red Cell Distribution Width 12.4 % 11.5-14.5 Norm al (applies to non-numeric results) [facility] ([facility]) Mean Corpuscular HGB Conc 33.4 g/dL 32.0-36.5 Normal (applies to non-numeric results) [facility] ([facility]) Bradley % 7.8 % 0.0-5.0 Above high normal [facility] ([facility]) Lymph % 9.0 % 24.0-44.0 Below low normal [facility] ( [facility]) Neutrophils % 82.5 % 36.0-66.0 Above high normal [facility] ([facility]) Immature Granulocyte % 0.6 % 0-3.0 Normal (applies to non-n umeric results) [facility]) Eos % 0.0 % 0.0-3.0 Normal (applies to non-numeric resul ts) [facility]) Baso % 0.1 % 0.0-1.0 Normal (applies to non-numeric resul ts) [facility] ([facility]) Nucleated Red Blood Cell % 0.0 % 0-0 Normal (applies to n on-numeric results) [facility] ([facility]) Lymph # 1.1 10 1.5-5.0 Below low normal [facility] ( [facility]) Neutrophils # 9.6 10 1.5-8.5 Above high normal [facility] ([facility]) Bradley # 0.9 10 0.0-0.8 Above high normal [facility] ([facility]) Baso # 0.0 10 0.0-0.2 Normal (applies to non-numeric resul ts) [facility] ([facility]) Eos # 0.0 10 0.0-0.5 Normal (applies to non-numeric resul ts) [facility] ([facility]) ID Date Data Source [id number] 03/03/2020 04:07:00 PM EST [facility] ([facility]) Name Value Range Interpretation Code Description Data Mckayla rce(s) Supporting Document(s) Surgical pathology study Laboratory test result [facility] ([facility]) FINAL DIAGNOSIS Appendix, appendectomy: Acute appendicitis with periappendicitis. 03/05/2020825 CLINICAL DIAGNOSIS Acute appendicitis 03/04/2020 - 1401 GROSS DIAGNOSIS Received in formalin labeled "appendix" and consists of an appendectomy specimen 3.5 cm in length and 0.8 cm in diameter. No Polypoid or mass lesion is identified. Parole Agent section is submitted in one. -OA 03/05/2020825 Signed ANAM MONTES DE OCA MD 03/05/2020 1057 ID Date Data Source [id number] 03/03/2020 11:29:00 AM EST [facility] ([facility]) Name Value Range Interpretation Code Description Data Mckayla rce(s) Supporting Document(s) Blood Culture Laboratory test result [facility] ([facility]) No growth after 72 hours . All specimens observed for 5 days. Results final at that time. No growth after 48 hours . All specimens observed for 5 days. Results final at that time. No growth after 24 hours . All specimens observed for 5 days. Results final at that time. NO GROWTH AFTER 5 DAYS ID Date Data Source [id number] 03/03/2020 11:28:00 AM EST [facility] ([facility], ) Name Value Range Interpretation Code Description Data Mckayla rce(s) Supporting Document(s) Blood Culture Laboratory test result Normal (applies t o non-numeric results) [facility]) <content>GRAM POSITIVE COCCI IN CLUSTERS GRAM POSITIVE [...] blood pressure 120 mm[Hg] 120 mm[Hg] [facility] Diastolic blood pressure 62 mm[Hg] 62 mm[Hg] [facility] ([facility]) Body height 65 [in_i] 65 [in_i] [facility] ([facility]) 5'5" Body weight 180.38 [lb_av] 180.38 [lb_av] [facility] Body mass index (BMI) [Ratio] 30.0 kg/m2 30.0 k g/m2 [facility] ([facility]) Lowry body weight 136 [lb_av] 136 [lb_av] [facility] Body weight 81.818 kg 81.818 kg [facility] ([facility]) ID Date Data Source [id number] 12/08/2020 03:56:26 PM EDT [facility] Name Value Range Interpretation Code Description Data Source(s) WEIGHT RECORDED 180.00 pounds 180.00 pounds [facility] Height 65 Inches 065 Inches [facility]
[2021-03-21 15:22] VITALS: BP 126/77
[2021-03-21 15:35] LABS: CK-MB VALUE MASS < 1.0 NG/ML (<3.6); CPK CREATINE PHOSPHOKINASE 154 U/L (39-308); MB/CK RELATIVE INDEX 0.65 (< OR =4); TROPONIN I < 0.02 NG/ML (< 0.10)
[2021-03-21 15:55] LABS: FREE T4 1.06 NG/DL (0.76-1.46); MAGNESIUM LEVEL 2.2 MG/DL (1.8-2.4); THYROID STIMULATING HORMONE 0.982 uIU/ML (0.358-3.740)
--- NOTE | 2021-03-21 19:39 | ECGEPIP ---
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
== END 2021-03-21 16:19 | disposition home or self-care (01) ==
LOC: M ED 09:35
DX: R51.9 Headache, unspecified (principal); F17.210 Nicotine dependence, cigarettes, uncomplicated
CPT/HCPCS: 70450; 80048; 82550; 82553; 83735; 84439; 84443; 84484; 85025; 93005; 96361; 96374; 96375; 99284; J1885; J2405

== ENCOUNTER → 2021-08-19 | Outpatient (REF) | LOC: M PLAIMG 14:47 | PROVIDERS: ATTEND Internal Medicine | DX: R06.02 Shortness of breath (principal) ==